=== PATIENT | male | born 1940 | race Caucasian/White ===

== ENCOUNTER 2020-01-04 07:20 | Outpatient (CLI) | payer MEDICARE, SELFPAY ==
--- NOTE | ~2020-01-04 | CT_ITS ---
EXAMINATION: CT abdomen pelvis w con DATE: 01/04/2020 08:12 INDICATION: Prostate cancer TECHNIQUE: Computed tomography (CT) of the abdomen and pelvis was performed with 100 mL Omnipaque-350 intravenous contrast. Automated exposure control and iterative reconstruction technique were employe d. The dose-length product was 619.11 mGy-cm. COMPARISON: None FINDINGS: Mild lingular atelectasis. Small calcified nodule in the right middle lobe consistent with old granul omatous disease. Noncalcified 2-3 mm right lower lobe nodule. Visualized inferior heart is normal. No pericardial or pleural effusion. A couple small calcified gallstones along the dependent wall of the otherwise normal gallbladder. Liver, pancreas and bilateral adrenal glands are normal. Numerous sple patricia calcifications consistent with old granulomatous disease. Bilateral renal cysts the larger on the left measuring 1.4 cm. There are a few scattered colonic diverticula without adjacent inflammatory c hange to suggest diverticulitis. Small bowel and appendix are normal. Diffuse mild wall thickening in the bladder likely related to chronic outlet obstruction due to the enlarged prostate which measures 6.3 x 5.0 cm. Bilateral fat-containing inguinal hernias. No free intraperitoneal gas or fluid. There are multiple enlarged retroperitoneal lymph nodes concerning for metastatic disease. These begin cau dally at the bilateral external iliac chains and extend cephalad to several enlarged periaortic lymph nodes around the wong of the diaphragm and one along the caudal-most thoracic aorta. The largest is a 3.8 x 2.3 cm aortocaval lymph node along the cephalad margin of the right renal vein. Right total h ip arthroplasty. There are numerous scattered sclerotic bone lesions scattered throughout the axial a nd appendicular skeleton which are lower density than typical bone islands and most consistent with w idespread osseous metastatic disease. Severe thoracolumbar spondylosis. IMPRESSION: 1. Enlarged prostate consistent with given history of prostate cancer with multiple enlarged and like ly metastatic retroperitoneal lymph nodes extending from the lower pelvis through the lower thorax an d with widespread sclerotic and likely metastatic bone lesions throughout the axial and appendicular skeleton. 2. Cholelithiasis. Reviewed, dictated and finalized at location A. IMPRESSION: 1. Enlarged prostate consistent with given history of prostate cancer with mult iple enlarged and likely metastatic retroperitoneal lymph nodes extending from the lower pelvis through the lower thorax and with widespread sclerotic and lik laureen metastatic bone lesions throughout the axial and appendicular skeleton. 2. Cholelithiasis.
--- NOTE | ~2020-01-04 | NM_ITS ---
EXAMINATION: NM bone scan whole body DATE: 01/04/2020 11:04 INDICATION: Prostate cancer TECHNIQUE: 23.6 mCi Tc-99m HDP was administered intravenously. Delayed whole-body scintigrams were o btained. COMPARISON: CT abdomen and pelvis dated 01/04/2020 FINDINGS: There are numerous foci of increased bone uptake throughout the axial and appendicular skeleton with corresponding sclerotic bone lesions on CT consistent with widespread metastatic disease. Photopenic defect at the right hip corresponding to a total hip arthroplasty. A few more typical foci of likely degenerative joint centered uptake at the radial aspect of the carpi and bilateral acromioclavicular joints. There is also significant uptake centered about the bilateral knees which appears more widesp read than typical osteoarthritis and remains equivocal for metastatic disease versus osteoarthritis o r some combination thereof. IMPRESSION: 1. Widespread osseous metastatic disease. Reviewed, dictated and finalized at location A.
[2020-01-04 08:06] LABS: Estimated Glomerular Filt Rate 45
== END 2020-01-04 07:21 | disposition home or self-care (01) ==
PROVIDERS: PCP Family Medicine Adolescent Medicine; Visit Provider Urology
DX: C61 Malignant neoplasm of prostate (principal); K80.20 Calculus of gallbladder without cholecystitis without obstruction; C79.51 Secondary malignant neoplasm of bone
CPT/HCPCS: 74177; 78306; A9561; Q9967

== ENCOUNTER 2020-04-13 11:46 | Emergency (ER) | payer MEDICARE, SELFPAY ==
--- NOTE | ~2020-04-13 | XR_ITS ---
EXAMINATION: XR chest 2V DATE: 04/13/2020 12:24 INDICATION: Intermittent upper chest pain TECHNIQUE: PA and lateral views of the chest were obtained. COMPARISON: Chest radiograph dated 03/22/2008 FINDINGS: Small calcified nodule at the right lung base consistent with old granulomatous disease. Mild linear discoid atelectasis/scarring at the lingula. No other airspace opacities, pulmonary edema, pleural ef fusion or pneumothorax. Arch size is normal. Small bilateral paracardial fat pads. Severe thoracic sp ondylosis. IMPRESSION: 1. No acute cardiopulmonary disease. Reviewed, dictated and finalized at location A. LITY DESIGNER
--- NOTE | ~2020-04-13 | CT_ITS ---
EXAMINATION: CTA chest PE protocol DATE: 04/13/2020 13:12 INDICATION: Midsternal chest pain TECHNIQUE: Computed tomography (CT) pulmonary angiogram of the chest was performed with 100 mL Omnipa que-350 intravenous contrast. Additional 3D reconstructions utilizing coronal maximum intensity proje ction (MIP) were performed. Automated exposure control and iterative reconstruction technique were em ployed. The dose-length product was 502.04 mGy-cm. COMPARISON: None FINDINGS: Excellent contrast opacification of the pulmonary arteries. There is mild streak artifact from dense contrast in the superior vena cava and right atrium. Mild scattered respiratory motion artifact which does not significantly limit evaluation. No pulmonary embolism. Mild discoid atelectasis at the ling [place] and bilateral lower lobes. No pneumonia, pulmonary edema, pleural effusion or pneumothorax. Heart size is normal. No pericardial effusion. Thoracic aorta is normal in caliber with no dissection. Krish cified mediastinal lymph nodes all with multiple splenic calcific a cyst is consistent with old granu lomatous disease. Calcified gallstones along the dependent aspect of the otherwise normal gallbladder . There are numerous scattered sclerotic bone lesions throughout the visualized axial and appendicula r skeleton consistent with widespread metastatic prostate cancer. Severe thoracic spondylosis. No acu te osseous abnormality. IMPRESSION: 1. No pulmonary embolism or other acute cardiopulmonary disease. 2. Widespread sclerotic bone lesions consistent with metastatic prostate cancer. 2. Cholelithiasis. Reviewed, dictated and finalized at location A. LEM MANAGER IMPRESSION: 1. No pulmonary embolism or other acute cardiopulmonary disease. 2. Widespread sclerotic bone lesions consistent with metastatic prostate cancer . 2. Cholelithiasis.
--- NOTE | 2020-04-13 11:47 | ECG_ITS ---
Measurements Intervals [place] Rate: 110 P: 61 NC: 157 QRS: -13 QRSD: 123 T: 49 QT: 340 QTc: 461 Interpretive Statements SINUS TACHYCARDIA RIGHT BUNDLE BRANCH BLOCK ABNORMAL ECG Electronically Signed On 04-13-2020 14:55:14 WATER AND FIRE TECHNICIAN by Maged Yoo D.O.
[2020-04-13 11:49] VITALS: BP 158/86; PULSE 111; RESP 18; TEMP 36.4; O2SAT 100
[2020-04-13 11:52] VITALS: PULSE 111
[2020-04-13 12:02] LABS: Basophils Percent Auto 0.3 % (0.2-1.2); Eosinophils Absolute Auto 0.1 K/mm3 (0-0.3); Eosinophils Percent Auto 0.8 % (0-4.4); Hematocrit 36.2 % (42.0-52.0); Hemoglobin 12.6 g/dL (14.0-18.0); Immature Granulocyte Absolute 0.07 K/mm3 (0.00-0.031); Immature Granulocyte Percent A 0.7 % (0-0.5); Lymphocytes Absolute Auto 2.17 K/mm3 (0.9-3.2); Lymphocytes Percent Auto 22.5 % (18.3-44.2); Mean Corpuscular HGB Conc 34.8 g/dl (32-36); Mean Corpuscular Hemoglobin 33.8 pg (26-34); Mean Corpuscular Volume 97.1 fl (80-100); Mean Platelet Volume 9.4 fl (7.4-10.4); Monocytes Absolute Auto 0.7 K/mm3 (0.1-0.6); Neutrophils Absolute Auto 6.6 K/mm3 (1.3-6.7); Neutrophils Percent Auto 68.7 % (45.5-73.1); Platelet Count Result 255 k/mm3 (150-375); Red Blood Count 3.73 M/mm3 (4.6-6.20); Red Cell Distribution Width 13.9 % (11.5-14.5); White Blood Count 9.6 K/mm3 (4.5-10.0)
[2020-04-13] MEDS: ASPIRIN 81 MG CHEWABLE TABLET 324 MG PO (12:09)
[2020-04-13 12:12] LABS: Prothrombin Time 13.4 Seconds (11.1-14.7)
[2020-04-13 12:13] LABS: Partial Thromboplastin Time 29.9 SECONDS (22.3-36.8)
[2020-04-13 12:14] LABS: Anion Gap 7 mmol/L (8-16); Blood Urea Nitrogen 21 mg/dL (9-20); Calcium 10.2 mg/dL (8.4-10.2); Carbon Dioxide 27 mmol/L (22-30); Chloride 104 mmol/L (98-107); Estimated CRCL calculation 51 ml/min; Estimated Glomerular Filt Rate 53; Glucose 186 mg/dL (75-110); Potassium 3.5 mmol/L (3.4-5.0); Sodium 138 mmol/L (137-145)
[2020-04-13 12:26] LABS: Troponin I < 0.012 ng/mL (0.000-0.034)
[2020-04-13] MEDS: SODIUM CHLORIDE 0.9% IV 1,000 ML 999 ML IV CONT (12:28)
[2020-04-13 13:06] VITALS: BP 135/85; PULSE 94; RESP 18; O2SAT 100
--- NOTE | 2020-04-13 14:24 | ED.CHESTPAIN ---
HPI - Chest Pain General Chief Complaint: Chest Pain Stated Complaint: chest pain Time Seen by Provider: 04/13/20 12:00 History of Present Illness HPI narrative: Patient is a 80-year-old male who presents ER with concerns for chest pain. For the last 3 days patient has had discomfort up at the sternum that has started to move inferiorly down his chest. It began after he was pushing some snow day before. While pushing snow he had no chest pain or chest pressure or shortness of breath. Reports he actually felt good because he had been sedentary up until then. Patient has history of metastatic prostate cancer. Denies any aggravating or alleviating factors. Concerned he may have bronchitis as symptoms were preceded by having mild runny nose. No fevers or chills, he does get night sweats as a side effect of the medication he takes. He has had no productive cough. No previous cardiac disease. Related Data Allergies Allergy/AdvReac Type Severity Reaction Status Date / Time No Known Allergies Allergy NONR Unverified 07/07/17 14:39 Review of Systems Review of Systems: All systems reviewed & are unremarkable except as noted in HPI and below Constitutional: Constitutional: Denies chills, Denies fever(s) and Denies weakness ENT: Reports nasal congestion and Denies sore throat Cardiovascular: Cardiovascular: Reports chest pain, Denies rapid heart rate and Denies radiating jaw, neck or arm pain Respiratory: Respiratory: Denies cough, Denies dyspnea and Denies wheezing Gastrointestinal: Gastrointestinal: Denies nausea and Denies vomiting PMFSH Past Medical History Medical History (Updated 04/13/20 @ 14:32 by Bg Lomeli MD) Hypertension Prostate cancer metastatic to bone Surgical History Surgical History (Updated 04/13/20 @ 14:26 by Bg Lomeli MD) History of right hip replacement Social History Social History (Updated 04/13/20 @ 14:26 by Bg Lomeli MD) Smoking status: Never smoker Exam Narrative: Exam Narrative: GENERAL: Well-appearing, well-nourished, and in no acute distress. HEAD: Normocephalic, atraumatic. CHEST: Clear to auscultation. No respiratory distress. No reproducible tenderness. HEART: Tachycardic and regular. Normal peripheral pulses. ABDOMEN: Soft, nontender, nondistended. EXTREMITIES: Normal range of motion. No edema. SKIN: Warm, dry, no rash. NEURO: Alert and oriented x3. PSYCH: Normal mood and affect. Course Course Emergency Course: Persistent pain x3 days alleviated by aspirin in the ER. Troponin negative. CTA without evidence of PE. Heart rate improved with fluids. Recommend scheduled ibuprofen at home and discussed that he should take this with food to prevent ulcer formation. Suspect musculoskeletal in nature, recommend to avoid strenuous activity and f/u with PCP. Vital Signs Vital signs: Vital Signs Temperature 97.6 F 04/13/20 11:49 Pulse Rate 111 H 04/13/20 11:49 Respiratory Rate 18 04/13/20 11:49 Blood Pressure 158/86 H 04/13/20 11:49 Pulse Oximetry 100 04/13/20 11:49 Temperature 97.6 F 04/13/20 11:49 Pulse Rate 94 04/13/20 13:06 Respiratory Rate 18 04/13/20 13:06 Blood Pressure 135/85 04/13/20 13:06 Pulse Oximetry 100 04/13/20 13:06 MDM - Chest Pain Lab Data Result diagrams: 04/13/20 11:56 04/13/20 11:56 Labs: Lab Results 04/13/20 04/13/20 04/13/20 Range/Units 11:56 11:56 11:56 WBC 9.6 (4.5-10.0) K/mm3 RBC 3.73 L (4.6-6.20) M/mm3 Hgb 12.6 L (14.0-18.0) g/dL Hct 36.2 L (42.0-52.0) % MCV 97.1 (80-100) fl MCH 33.8 (26-34) pg MCHC 34.8 (32-36) g/dl RDW 13.9 (11.5-14.5) % Plt Count 255 (150-375) k/mm3 MPV 9.4 (7.4-10.4) fl Immature Gran % (Auto) 0.7 H (0-0.5) % Neut % (Auto) 68.7 (45.5-73.1) % Lymph % (Auto) 22.5 (18.3-44.2) % [place] % (Auto) 7.0 (2.6-8.5) % Eos % (Auto) 0.8 (0-4.4) % Baso % (Auto)
[2020-04-13 14:35] VITALS: BP 130/79; PULSE 89; RESP 18; O2SAT 100
== END 2020-04-13 14:40 | disposition home or self-care (01) ==
PROVIDERS: General Practice; Emergency Provider Emergency Medicine; PCP Family Medicine Adolescent Medicine
DX: R07.89 Other chest pain (principal); I10 Essential (primary) hypertension; Z96.641 Presence of right artificial hip joint; K80.20 Calculus of gallbladder without cholecystitis without obstruction; R00.0 Tachycardia, unspecified; I45.10 Unspecified right bundle-branch block; C79.51 Secondary malignant neoplasm of bone; Z85.46 Personal history of malignant neoplasm of prostate
CPT/HCPCS: 36415; 71046; 71275; 80048; 84484; 85025; 85610; 85730; 93005; 96360; 99284; A9270; J7030; Q9967

== ENCOUNTER 2020-05-26 13:32 | Outpatient (CLI) | payer MEDICARE, SELFPAY ==
--- NOTE | ~2020-05-26 | CT_ITS ---
EXAMINATION: CT abdomen pelvis wo con DATE: 05/26/2020 14:34 INDICATION: Prostate cancer restaging TECHNIQUE: Computed tomography (CT) of the abdomen and pelvis was performed without intravenous contr ast. Automated exposure control and iterative reconstruction technique were employed. Exam dose: 660 .77 mGy-cm total exam DLP. COMPARISON: 01/04/2020 CT abdomen pelvis FINDINGS: Mild discoid scarring at the lingula. No infiltrate or consolidation at the lung bases. Normal heart size. No pericardial or pleural effusion. There are multiple small stones in the dependent aspect of the body and fundus of the gallbladder. No gallbladder wall thickening or pericholecystic fluid or fat stranding is evident. No bile duct or pa ncreatic duct dilatation. No hepatic, splenic, pancreatic space-occupying mass lesion. There are occasional pancreatic calcific ations suggesting chronic pancreatitis. Multiple calcified splenic granulomas consistent with old gra nulomatous disease. Normal morphology of the adrenal glands. Mid left renal approximately 1.3 cm cyst and additional smaller occasional cysts of the kidneys demon strated to better advantage on the 01/04/2020 CT abdomen pelvis examination with IV contrast material . No urinary tract calculus or hydroureteronephrosis. Normal caliber of the abdominal aorta. There is interval resolution of periaortic and aortocaval lymphadenopathy since 01/04/2020. Relatively stable approximately 1.3 cm left external iliac lymph node; otherwise there is considerabl e improvement of bilateral iliac lymphadenopathy since 01/04/2020. Prostate enlargement and calcifications. Normal appendix. Mild colonic diverticulosis. No bowel obstruction, bowel wall thickening, pneumatosi s or intraperitoneal free air is evident. Small fat-containing umbilical hernia. Right total hip arthroplasty. There is interval progression of extensive skeletal metastatic disease. She is sclerotic and mixed sc lerotic and lytic. The metastatic disease is scattered throughout the included ribs, thoracic and lum bar spine, sacrum, pelvic bones, left femur and probably right femur. IMPRESSION: Considerably increased skeletal metastatic disease since 01/04/2020 Considerable improvement of retroperitoneal and pelvic lymphadenopathy since 01/04/2020 Cholelithiasis Reviewed, dictated and finalized at Location A. Reviewed, dictated and finalized at location A. IMPRESSION: Considerably increased skeletal metastatic disease since 0 Considerable improvement of retroperitoneal and pelvic lymphadenopathy since Cholelithiasis
== END 2020-05-26 13:33 | disposition home or self-care (01) ==
PROVIDERS: PCP Family Medicine Adolescent Medicine; Visit Provider Urology
DX: C61 Malignant neoplasm of prostate (principal); K80.20 Calculus of gallbladder without cholecystitis without obstruction
CPT/HCPCS: 74176

== ENCOUNTER → 2020-07-31 13:31 | Outpatient (CLI) | payer MEDICARE, SELFPAY ==
--- NOTE | ~2020-07-31 | XR_ITS ---
EXAMINATION: XR knee RT min 4V DATE: 07/31/2020 14:50 INDICATION: Right knee pain TECHNIQUE: Four views of the right knee were obtained. COMPARISON: None. FINDINGS: Alignment is normal. No fracture or osteochondral lesion. There is severe tricompartmental osteoarthritis. A moderate-sized joint effusion is present. Soft tissues are unremarkable. IMPRESSION: 1. Severe tricompartmental osteoarthritis. Reviewed, dictated and finalized at location A.
--- NOTE | ~2020-07-31 | XR_ITS ---
EXAMINATION: XR knee LT min 4V DATE: 07/31/2020 14:49 INDICATION: Bilateral knee pain, history of quadriceps tendon repair TECHNIQUE: Four views of the left knee were obtained. COMPARISON: None. FINDINGS: There is mild lateral subluxation of the tibia with respect to the distal femur. There is s evere tricompartmental osteoarthritis. No joint effusion/synovitis. There is heterotopic ossificatio n at the cranial aspect of the patella, likely relating to prior quadriceps tendon repair. IMPRESSION: 1. Severe tricompartmental osteoarthritis. Reviewed, dictated and finalized at location A.
== END ==
PROVIDERS: PCP Family Medicine Adolescent Medicine; Visit Provider Family Medicine Adolescent Medicine
DX: M17.0 Bilateral primary osteoarthritis of knee (principal); Z85.46 Personal history of malignant neoplasm of prostate
CPT/HCPCS: 73564

== ENCOUNTER 2021-08-05 14:53 | Outpatient (CLI) | payer MEDICARE, SELFPAY ==
--- NOTE | ~2021-08-05 | DEXA_ITS ---
Bone Density Report Name: MARLON LOPEZ Age: 81 Sex: Male Ethnicity: White Date of : 1940 Indication: screening for osteoporosis; height loss; cancer Referring Provider: ROSEMARY JEAN-BAPTISTE Study: Bone densitometry was performed. Exam Date: August 05, 2021 Accession number: [id number] Bone Density: Region BMD T-score Z-score Classification AP Spine(L1, L3, L4) 1.482 3.6 4.7 Normal Femoral Neck (Left) 0.905 -0.2 1.3 Normal Total Hip (Left) 0.970 -0.4 0.6 Normal World Health Organization criteria for BMD impression classify patients as: Normal (T-score at or above -1.0), Osteopenia (T-score between -1.0 and -2.5), or Osteoporosis (T-score at or below -2.5). 10-year Fracture Risk: FRAX not reported because: All T-scores for Spine Total, Hip Total, Femoral Neck at or above -1.0 Clinical Information Provided by Patient: Has the following medical conditions: Cancer Patient maximum height was 72 No regular weight bearing exercise Drinks caffeinated beverages Impression: The patient has normal bone mass. Discussion: BONE DENSITY IS ABOVE THE MINIMUM DESIRABLE LEVEL AT ALL SKELETAL SITES TESTED. This patient?s bone mineral density is above the minimum desirable level (T-score -1.0 or better) at all sites measured. The patient should follow a healthful lifestyle (good nutrition with adequate calcium and vitamin D, and appropriate weight-bearing exercise). Follow-Up: Consider repeating this study in 5 years or sooner if there is some new clinical indication. Reported by: KELLY on 08/05/2021 3:12:00 PM. Reviewed, dictated and finalized at location David SMITH
== END 2021-08-05 14:54 | disposition home or self-care (01) ==
LOC: ANHIMG 14:54
PROVIDERS: PCP Family Medicine Adolescent Medicine; Visit Provider Urology
DX: C61 Malignant neoplasm of prostate (principal); Z13.820 Encounter for screening for osteoporosis; R29.890 Loss of height
CPT/HCPCS: 77080

== ENCOUNTER → 2022-07-14 09:09 | Outpatient (CLI) | payer MEDICARE, SELFPAY ==
--- NOTE | ~2022-07-14 | XR_ITS ---
AP and lateral views of the left hip Clinical history: Pain Findings: No acute fracture or dislocation is seen. There is severe left hip joint osteoarthritis, wi th marked joint space narrowing, reactive sclerosis, and subchondral cystic change at the superior fe moral head. Soft tissues are unremarkable. Impression: Severe left hip joint osteoarthritis, as detailed above. Reviewed, dictated and finalized at location M. Impression: Severe left hip joint osteoarthritis, as detailed above.
== END ==
PROVIDERS: PCP Family Medicine Adolescent Medicine; Visit Provider Family Medicine Adolescent Medicine
DX: M16.12 Unilateral primary osteoarthritis, left hip (principal)
CPT/HCPCS: 73502

== ENCOUNTER 2022-10-04 08:23 | Outpatient (CLI) | payer MEDICARE, SELFPAY ==
--- NOTE | ~2022-10-04 | CT_ITS ---
EXAMINATION: CT abdomen pelvis w con DATE: 10/04/2022 09:05 INDICATION: Prostate cancer restaging TECHNIQUE: Computed tomography (CT) of the abdomen and pelvis was performed with 100 CC Omnipaque 350 intravenous contrast. Automated exposure control and iterative reconstruction technique were employe d. Exam dose: 575.49 mGy-cm total exam DLP. COMPARISON: 05/26/2020 CT abdomen pelvis FINDINGS: The lung bases are clear of infiltrate or consolidation. Normal heart size. No pericardial or pleural effusion. Very small sliding hiatal hernia. There are multiple small stones in the dependent aspect of the gallbladder. No gallbladder wall thick ening or pericholecystic fluid or fat stranding. No bile duct or pancreatic duct dilatation. No hepatic, splenic, pancreatic or adrenal space-occupying mass lesion. There are multiple calcified splenic granulomas. There are several up to 1 cm right renal cysts. Approximately 3.5 mm nonobstructing right renal calculus. There are couple of left renal cysts, the larger measuring 2.5 cm. No left renal calculus. No left or right ureteral calculus or hydroureteronephrosis. There is prominent prostate enlargement, with prominent impression upon the base of the urinary bladd er. There is moderate diffuse bladder wall thickening likely due to bladder outlet obstruction second parvez to prostatomegaly. Normal appendix. Mild colonic diverticulosis. No CT evidence of diverticulitis. No bowel obstruction or intraperitoneal free air. Normal caliber of the abdominal aorta. Stable small right external iliac lymph nodes. No interval lymphadenopathy of the abdomen or pelvis i s noted. . There is been dramatic regression of the extensive osteosclerotic metastases since 10/26/2020 Multilevel degenerative disc disease of the lumbar spine, most severe at L2-3 Right total hip arthroplasty. Severe left hip osteoarthritis with obliteration of hip joint space IMPRESSION: Dramatic regression of osteosclerotic metastases of the axial skeleton since 05/26/2020 Severe left hip osteoarthritic arthritis, advanced since 05/26/2020 Cholelithiasis Very small sliding hiatal hernia Bilateral renal cysts Approximately 3.5 mm nonobstructing right renal calculus Normal appendix Mild colonic diverticulosis Reviewed, dictated and finalized at Location A. Reviewed, dictated and finalized at location B. IMPRESSION: Dramatic regression of osteosclerotic metastases of the axial skel eton since 05/26/2020 Severe left hip osteoarthritic arthritis, advanced since 05/26/2020 Cholelithiasis Very small sliding hiatal hernia Bilateral renal cysts Approximately 3.5 mm nonobstructing right renal calculus Normal appendix Mild colonic diverticulosis
--- NOTE | ~2022-10-04 | NM_ITS ---
Whole-body bone scan: History: Prostate cancer. COMPARISON: Prior bone scan dated 01/04/2020. CT scan performed earlier on 10/04/2022. Radiopharmaceutical: 26.1 mCi of technetium 99m MDP was administered intravenously. Procedure: Three hour delayed anterior and posterior whole-body bone scan was performed. Findings: There is increased uptake involving the left femoral head and neck. There are focal areas o f increased uptake in the thoracic and lumbar spine, most prominent at what appears to be L3. There i s extensive degenerative uptake at both knees and both shoulders. There is probable extensive degener ative uptake in the cervical spine.. Impression: Increased uptake at the left femoral head/femoral neck. Based on CT appearance, this is uptake relate d to severe osteoarthritis of the left hip joint. Multifocal areas of uptake in the thoracic and lumbar spine, most prominent at L3. There is minimal h eterogeneity of the osseous structures on CT without definite fracture, though there are areas of deg enerative disc narrowing. Findings are somewhat equivocal. Metastatic disease or degenerative uptake could have this appearance on bone scan. Consider MR of the thoracic and lumbar spine to better asses s the underlying marrow signal characteristics. Correlation with PSA levels may also be useful. Probable degenerative uptake at the knees, shoulders, cervical spine. Reviewed, dictated and finalized at location . Impression: Increased uptake at the left femoral head/femoral neck. Based on CT appearance, this is uptake related to severe osteoarthritis of the left hip joint. Multifocal areas of uptake in the thoracic and lumbar spine, most prominent at L3. There is minimal heterogeneity of the osseous structures on CT without defi nite fracture, though there are areas of degenerative disc narrowing. Findings are somewhat equivocal. Metastatic disease or degenerative uptake could have th is appearance on bone scan. Consider MR of the thoracic and lumbar spine to bet ter assess the underlying marrow signal characteristics. Correlation with PSA l evels may also be useful. Probable degenerative uptake at the knees, shoulders, cervical spine.
[2022-10-04 09:00] LABS: Estimated Glomerular Filt Rate 53
== END 2022-10-04 08:24 | disposition home or self-care (01) ==
PROVIDERS: PCP Family Medicine Adolescent Medicine; Visit Provider Urology
DX: C61 Malignant neoplasm of prostate (principal); K57.30 Diverticulosis of large intestine without perforation or abscess without bleeding; N28.1 Cyst of kidney, acquired; K80.20 Calculus of gallbladder without cholecystitis without obstruction; M16.12 Unilateral primary osteoarthritis, left hip
CPT/HCPCS: 74177; 78306; A9503; Q9967

== ENCOUNTER 2023-10-26 12:19 | Outpatient (CLI) | payer MEDICARE, SELFPAY ==
--- NOTE | ~2023-10-26 | DEXA_ITS ---
Bone Density Report Name: MARLON LOPEZ Age: 83 Sex: Male Ethnicity: White Date of : 1940 Indication: screening for osteoporosis; parental hip fracture; cancer; Referring Provider: ROSEMARY JEAN-BAPTISTE Study: Bone densitometry was performed. Exam Date: October 26, 2023 Accession number: [id number] Bone Density: Region BMD T-score Z-score Classification AP Spine(L1, L3, L4) 1.394 2.8 4.0 Normal Femoral Neck (Left) 0.844 -0.6 1.0 Normal Total Hip (Left) 0.900 -0.9 0.2 Normal World Health Organization criteria for BMD impression classify patients as: Normal (T-score at or above -1.0), Osteopenia (T-score between -1.0 and -2.5), or Osteoporosis (T-score at or below -2.5). 10-year Fracture Risk: FRAX not reported because: All T-scores for Spine Total, Hip Total, Femoral Neck at or above -1.0 Previous Exams: Region Exam Age BMD T-score BMD Change BMD Change Date g/cm2 vs Baseline vs Previous AP Spine (L1,L3-L4) 10/26/2023 83 1.394 2.8 -0.088 (-5.9%) -0.088 (-5.9%) 08/05/2021 81 1.482 3.6 Total Hip(Left) 10/26/2023 83 0.900 -0.9 -0.069 (-7.2%) -0.069 (-7.2%) 08/05/2021 81 0.970 -0.4 *Denotes significance at 95% confidence level, LSC for AP Spine = 0.022 g/cm2, LSC for Total Hip = 0.027 g/cm2 Clinical Information Provided by Patient: Parent has had a hip fracture Has the following medical conditions: Cancer No regular weight bearing exercise Does not regularly consume dairy products Impression: The patient has normal bone mass. The patient has risk factors, including: parental hip fracture. The BMD for the AP Spine (L1,L3-L4) decreased, changing by -5.9% since the last DXA exam. The BMD for the Total Hip(Left) decreased, changing by -7.2% since the last DXA exam. Discussion: BONE DENSITY IS ABOVE THE MINIMUM DESIRABLE LEVEL AT ALL SKELETAL SITES TESTED. This patient?s bone mineral density is above the minimum desirable level (T-score -1.0 or better) at all sites measured. The patient should follow a healthful lifestyle (good nutrition with adequate calcium and vitamin D, and appropriate weight-bearing exercise). Follow-Up: Consider repeating this study in 3 to 4 years to reassess this patient's status, or sooner if there is some new clinical indication. Reported by: PRESLEY on 10/26/2023 12:57:00 PM. Reviewed, dictated and finalized at location AHilda SMITH
== END 2023-10-26 12:20 | disposition home or self-care (01) ==
PROVIDERS: PCP Family Medicine Adolescent Medicine; Visit Provider Urology
DX: M81.0 Age-related osteoporosis without current pathological fracture (principal); C80.1 Malignant (primary) neoplasm, unspecified; Z19.1 Hormone sensitive malignancy status
CPT/HCPCS: 77080